=== PATIENT | male | born 1965 | race Caucasian/White ===

== ENCOUNTER 2017-07-18 15:39 | Emergency (ER) | payer OTHER ==
--- NOTE | 2017-07-18 15:44 | ED Physician Documentation ---
PD HPI UPPER EXT INJURY - Stated complaint Stated Complaint: GLF RT WRIST INJ - Chief complaint Chief Complaint: Ext Problem - History obtained from History obtained from: Patient - History of Present Illness Location: Right, Left, Wrist, Hand Type of injury: Fall (hiking pole broke as he was stepping down and he tumbled and rolled down embankment, with pain right wrist and left hand. No notable injuries to head/neck/chest/abd.) Where injury occurred: Other (hiking trail near [facility]) Timing - onset: [facility] Timing - duration: Hours Timing - details: Abrupt onset, Still present Improved by: Rest Worsened by: Moving, Palpating Associated symptoms: Swelling. No: Weakness, Numbness Contributing factors: Prior ortho surgery (carpal tunnel both wrists years ago) Similar symptoms before: Has not had sx before Recently seen: Not recently seen Review of Systems Constitutional: denies: Fever, Chills Nose: denies: Rhinorrhea / runny nose, Congestion Throat: denies: Sore throat Cardiac: denies: Chest pain / pressure Respiratory: denies: Cough GI: denies: Abdominal Pain, Vomiting, Diarrhea Skin: denies: Laceration (s) Neurologic: denies: Focal weakness, Numbness, Altered mental status, Headache, Head injury PD PAST MEDICAL HISTORY - Past Medical History Cardiovascular: None Respiratory: Sleep apnea, CPAP use Endocrine/Autoimmune: HyPOthyroidism GI: None : None HEENT: None Psych: None Musculoskeletal: Other Derm: None - Past Surgical History General: Hiatal hernia repair - Present Medications Home Medications: Ambulatory Orders Medication Instructions Recorded Confirmed Cetirizine [ZyrTEC] 10 mg PO DAILY 03/06/15 05/04/15 Fluticasone [Flonase] 1 sprays NATASHA DAILY 03/06/15 05/04/15 Ibuprofen 800 mg PO Q6HR PRN 03/06/15 05/04/15 Levothyroxine [Synthroid] 75 mcg PO QDAC 03/06/15 05/04/15 HYDROcod/ACETAM 5/325 [King 5/325] 1 tab PO Q6H PRN #15 tablet 07/18/17 Naproxen [Naprosyn] 500 mg PO BID PRN #20 tablet 07/18/17 - Allergies Allergies/Adverse Reactions: Allergies Allergy/AdvReac Type Severity Reaction Status Date / Time No Known Drug Allergies Allergy Verified 03/06/15 08:30 - Social History Does the pt smoke?: Yes Smoking Status: Current every day smoker Does the pt drink ETOH?: Yes Does the pt have substance abuse?: No - Immunizations Immunizations are current?: Yes - POLST Patient has POLST: No PD ED PE NORMAL - Vitals Vital signs reviewed: Yes - General General: Alert and oriented X 3, No acute distress, Well developed/nourished - HEENT HEENT: Atraumatic - Neck Neck: Supple, no meningeal sign, No bony TTP - Cardiac Cardiac: RRR, No murmur - Respiratory Respiratory: Clear bilaterally - Abdomen Abdomen: Soft, Non tender - Derm Derm: Normal color, Warm and dry - Extremities Extremities: Other (right wrist with tenderness and swelling dorsoradial without effect on pulses, sensation, cap refill. Left hands with tenderness over 5th MC with local swelling. Normal distal sensation, color and cap refill. Able to flex and extend at fingers, particularly little finger.) - Neuro Neuro: No motor deficit, No sensory deficit Results - Vitals Vitals: Vital Signs - 24 hr 07/18/17 07/18/17 15:49 17:49 Temperature 36.9 C Heart Rate 73 64 Respiratory 15 16 Rate Blood Pressure 134/81 H 135/84 H O2 Saturation 98 100 Oxygen O2 Source Room air - Rads (name of study) left hand Radiology: Prelim report reviewed, EMP read contemporaneously (5th MC shaft oblique fracture) right wrist Radiology: Prelim report reviewed, EMP read contemporaneously (distal radius fracture, vertically oriented, with 2mm widening of distal edges articularly.) Procedures - Splint (location) right wrist Splint applied by: Tech Type of splint: Fiberglass, Sugar tong Other: Patient tolerated well, No complications, Neurovascular intact, Sling provided left hand Splint applied by: Tech Type of splint: Fiberglass, Ulnar gutter Other: Patient tolerated well, No complications, Neurovascular intact PD MEDICAL DECISION MAKING - ED course Complexity details: reviewed results, considered differential, d/w patient, d/w coding consultant (Dr. Paulino) Departure - Departure Disposition: 01 Home, Self Care Clinical Impression: Fall from slip, trip, or stumble Qualifiers: Encounter type: initial encounter Qualified Code(s): W01.0XXA - Fall on same level from slipping, tripping and stumbling without subsequent striking against object, initial encounter Fracture of fifth metacarpal bone Qualifiers: Encounter type: initial encounter Fracture type: closed Metacarpal location: shaft Fracture alignment: nondisplaced Laterality: left Qualified Code(s): S62.357A - Nondisplaced fracture of shaft of fifth metacarpal bone, left hand, initial encounter for closed fracture Distal radius fracture, right Qualifiers: Encounter type: initial encounter Fracture type: closed Fracture morphology: other intra-articular Qualified Code(s): S52.571A - Other intraarticular fracture of lower end of right radius, initial encounter for closed fracture Condition: Stable Record reviewed to determine appropriate education?: Yes Instructions: ED Splint Care Fiberglass, ED Fx Wrist General Follow-Up: Delores Paulino MD [Provider Admit Priv/Credential] - Prescriptions: HYDROcod/ACETAM 5/325 [King 5/325] 1 tab PO Q6H PRN #15 tablet PRN Reason: Pain Naproxen [Naprosyn] 500 mg PO BID PRN #20 tablet PRN Reason: Pain Comments: Keep both splints on and keep them dry. Rest ice and elevate the broken areas to reduce swelling frequently over the next few days. Call the orthopedic office Thursday or Thursday when they are open for a follow-up appointment for likely mid to end of the week. Ibuprofen or naproxen twice daily for inflammation and pain. Add Tylenol or hydrocodone as needed for pain. Good luck over the next few weeks. You will presumably have limited use of the left hand for 4 weeks and the right wrist for about 4-6 weeks. Discharge Date/Time: 07/18/17 17:49
--- NOTE | 2017-07-18 17:25 | XRAY Preliminary Report ---
Exam: XR Hand 3 View LT IMPRESSION: 1. Tiny avulsion fracture base fifth metacarpal. 2. Oblique fracture mid diaphysis fifth metacarpal. 3. Moderate degenerative changes fifth PIP joint due to remote trauma. 4. 4 x 5 mm nonspecific calcification anterior wrist, unlikely to be an acute avulsion fracture, susp ect remote calcific tendinitis. This is of uncertain clinical significance although could cause some mechanical compromise with flexion. [facility] SITE ID: [id number]
--- NOTE | 2017-07-18 17:25 | XRAY Preliminary Report ---
Exam: XR Wrist 4 View RT IMPRESSION: Distal radial fracture. [facility] SITE ID: [id number]
--- NOTE | 2017-07-18 17:26 | XRAY Report ---
EXAM: RIGHT WRIST RADIOGRAPHY EXAM DATE: 07/18/2017 04:33 p.m. CLINICAL HISTORY: Pain after a fall while hiking this morning. COMPARISON: None. TECHNIQUE: 4 views. FINDINGS: Bones: Acute comminuted nondisplaced fracture involving the central sagittal plane distal radius exte nding from the distal diaphysis to the articulating cortex with 2 mm maximum distraction. No angulati on. Joints: Normal. No subluxations. Soft Tissues: Edema at the fracture site. IMPRESSION: Distal radial fracture. [facility] Referring Provider Line: [phone] SITE ID: [id number]
--- NOTE | 2017-07-18 17:33 | XRAY Report ---
EXAM: LEFT HAND RADIOGRAPHY EXAM DATE: 07/18/2017 04:32 p.m. CLINICAL HISTORY: Pain after a fall while hiking this morning. COMPARISON: None. TECHNIQUE: 3 views. FINDINGS: Bones: 2 mm minimally displaced avulsion fracture off the medial-most aspect base of the fifth metacarpal, w ith associated edema. Acute oblique fracture involving the mid half fifth metacarpal diaphysis with 3 mm overlapping of the fracture fragments, without angulation. Mature-appearing distortion and large anterior osteophytes at the base of the fifth middle phalanx wi thout associated edema. Old fracture at the anterior aspect base of the fifth middle phalanx. 5 x 4 mm well-corticated calcification anterior to the radial cortex, in the region of the proximal a spect of the flexor tendons. Joints: Moderate narrowing of the fifth PIP joint with large osteophytes and subcortical sclerosis. Mild degenerative changes consisting of mild joint space narrowing and minimal bony reactive changes involving the radial carpal, and the rest of the interphalangeal joints. Normal MCP joints. Soft Tissues: Edema at the fracture sites. IMPRESSION: 1. Tiny avulsion fracture at the base of the fifth metacarpal. 2. Oblique fracture mid diaphysis fifth metacarpal. 3. Moderate degenerative changes at the fifth PIP joint due to remote trauma. 4. 4 x 5 mm nonspecific calcification anterior wrist, unlikely to be an acute avulsion fracture, susp ect remote calcific tendinitis. This is of uncertain clinical significance, although could cause some mechanical compromise with flexion. [facility] Referring Provider Line: [phone] SITE ID: [id number]
[2017-07-18 17:51] VITALS: BP 135/84
== END 2017-07-18 17:49 | disposition home or self-care (01) ==
LOC: ED 15:39
DX: S62.317A Displaced fracture of base of fifth metacarpal bone, left hand, initial encounter for closed fracture (principal); S62.357A Nondisplaced fracture of shaft of fifth metacarpal bone, left hand, initial encounter for closed fracture; S52.571A Other intraarticular fracture of lower end of right radius, initial encounter for closed fracture; W17.81XA Fall down embankment (hill), initial encounter; Y93.01 Activity, walking, marching and hiking; Y92.828 Other wilderness area as the place of occurrence of the external cause; G47.30 Sleep apnea, unspecified; E03.9 Hypothyroidism, unspecified; F17.200 Nicotine dependence, unspecified, uncomplicated
CPT/HCPCS: 29105; 29125; 99283; 99284